=== PATIENT | female | born 1960 | race Caucasian/White ===

== ENCOUNTER 2024-04-08 11:17 | Outpatient (CLI) | payer MEDICARE, SELFPAY ==
--- NOTE | 2024-04-08 11:23 | XR_ITS ---
WS: [id number] XR hip BI m 5V wo/w pel* [id number] REASON FOR EXAM: chronic hip pain bilaterally FINDINGS: RIGHT HIP: No fracture or focal bone lesion. Mild to moderate narrowing of the posterior inferior joint space. Mild to moderate subchondral sclero sis and osteophytosis of the acetabulum. Femoral head is unremarkable. No soft tissue abnormality. LEFT HIP: No fracture or focal bone lesion. Mild to moderate narrowing of the posterior inferior joint space with mild to moderate subchondral sc lerosis and osteophytosis of the acetabulum. Femoral head is unremarkable. No soft tissue abnormality. Compared to the presumed normal right sacroiliac joint, the left demonstr ates mild to moderate narrowing with moderate marginal sclerosis. 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 Nonspecific left sacroiliitis as above.
== END 2024-04-08 11:18 | disposition home or self-care (01) ==
LOC: RAD 11:22
PROVIDERS: PCP Family Medicine; Visit Provider Family Medicine
DX: M16.0 Bilateral primary osteoarthritis of hip (principal); G89.29 Other chronic pain; R93.89 Abnormal findings on diagnostic imaging of other specified body structures; M25.752 Osteophyte, left hip; M25.751 Osteophyte, right hip
CPT/HCPCS: 73523; 80053; 80061; 83690; 84443; 85025

== ENCOUNTER 2024-07-21 05:00 | Outpatient (RCR) | payer MEDICARE, SELFPAY | END 2024-08-20 23:59 | disposition home or self-care (01) | LOC: MPT 05:00 | PROVIDERS: PCP Family Medicine; Visit Provider Family Medicine | DX: M25.551 Pain in right hip (principal); M25.552 Pain in left hip; M54.59 Other low back pain | CPT/HCPCS: 97110; 97162 ==

== ENCOUNTER → 2024-08-04 12:02 | Outpatient (BNVA) | payer MEDICARE, SELFPAY | PROVIDERS: PCP Family Medicine; Visit Provider Family Medicine | DX: M19.90 Unspecified osteoarthritis, unspecified site (principal); M46.1 Sacroiliitis, not elsewhere classified | CPT/HCPCS: 84550; 85025; 86038; 86140; 86431 ==

== ENCOUNTER 2024-08-21 05:00 | Outpatient (RCR) | payer MEDICARE, SELFPAY | END 2024-09-19 23:59 | disposition home or self-care (01) | LOC: MPT 05:00 | PROVIDERS: PCP Family Medicine; Visit Provider Family Medicine | DX: M46.1 Sacroiliitis, not elsewhere classified (principal); M16.0 Bilateral primary osteoarthritis of hip; M17.0 Bilateral primary osteoarthritis of knee | CPT/HCPCS: 97110; 97140 ==